=== PATIENT | male | born 1940 | race Caucasian/White ===

== ENCOUNTER 2018-07-30 05:06 | Day surgery (SDC) | payer MEDICARE, OTHER ==
[~2018-07-30 05:06] MED LIST: Dextrose 5%-0.45% NaCl 1,000 ML IV SCH; Sodium Chloride 0.9% 10 ML Syringe FLUSH PRN
[2018-07-30] MEDS ORDERED: fentaNYL 100 MCG/2 ML SDV IV ONE ×3 (05:07→06:26)
[2018-07-30] MEDS ORDERED: Midazolam 1 MG/ML 2 ML SDV IV ONE ×5 (05:07→06:32)
[2018-07-30] MEDS ORDERED: Midazolam 1 MG/ML 2 ML SDV ONE (06:17)
[2018-07-30] MEDS ORDERED: fentaNYL 100 MCG/2 ML SDV ONE (06:17)
--- NOTE | 2018-07-30 07:32 | OR ---
DATE: 07/30/2018 PROCEDURES PERFORMED: Total colonoscopy, NBI, and piecemeal cold snare polypectomy. INSTRUMENT USED: [id number]-[id number] Olympus video colonoscope. PREMEDICATIONS: Fentanyl 100 mcg intravenous and Versed 3 mg intravenous. Nasal O2 cannula. The procedure was done under pulse oximetry, BP recording, and personnel monitor. INDICATION: The patient with rectal bleeding. Colonoscopic examination is done for detection of any polypoid lesions and removal, endoscopic hemostasis therapy if needed. DESCRIPTION OF PROCEDURE: Initial rectal exam was unremarkable. Rigid anoscopy showed small internal hemorrhoids without bleeding from them. The colonoscope was passed with ease. Numerous scattered diverticula were noted in the distal left colon along with deformity. The scope was passed with ease up to the ileocecal area, photographs were taken of the normal-appearing cecum identified by landmarks of appendiceal orifice and double-bulged ileocecal folds. No bleeding was noted from any of the visualized areas at the commencement of the examination. No stricture. No vascular ectasia. No large isolated ulcerations seen. No evidence of diffuse inflammatory bowel disease in the form of friability, contact bleeding, or ulcerations. Probing the proximal sides of folds and flexures, using adequate distention and clearing of the stool material, withdrawal of the scope was made. In the area of hepatic flexure, a 1 cm sized benign-appearing sessile polyp was noted, NBI views were obtained, piecemeal cold snare polypectomy was done, the tissues were retrieved and sent for histopathology. Photographs were taken of the polypectomy site. No bleeding was noted from any of the visualized areas at the completion of examination. The bowel preparation was found to be adequate. IMPRESSION: 1. Internal hemorrhoids. 2. Diverticulosis. 3. Colonic polyp. The patient tolerated the procedure well. [facility] /[id number]
== END 2018-07-30 09:05 | disposition home or self-care (01) ==
LOC: DL.ENDO 05:06
PROVIDERS: ATTEND Internal Medicine Gastroenterology
DX: K62.5 Hemorrhage of anus and rectum (principal); D12.3 Benign neoplasm of transverse colon; K57.30 Diverticulosis of large intestine without perforation or abscess without bleeding; K64.8 Other hemorrhoids; I10 Essential (primary) hypertension; E66.09 Other obesity due to excess calories; E78.5 Hyperlipidemia, unspecified; I25.10 Atherosclerotic heart disease of native coronary artery without angina pectoris; D69.6 Thrombocytopenia, unspecified
CPT/HCPCS: J2250; J3010; J7042

== ENCOUNTER → 2019-12-22 | Day surgery (SDC) | payer MEDICARE, OTHER ==
[~2019-12-22] MED LIST changes: +Midazolam 1 MG/ML 2 ML SDV IV ONE; +Midazolam 1 MG/ML 2 ML SDV ONE; -Sodium Chloride 0.9% 10 ML Syringe FLUSH PRN; +fentaNYL 100 MCG/2 ML SDV IV ONE; +fentaNYL 100 MCG/2 ML SDV ONE
--- NOTE | 2019-12-22 14:42 | OR ---
DATE: 12/22/2019 PROCEDURES: Total colonoscopy and narrow-band imaging. INSTRUMENT USED: [id number] Olympus video colonoscope. PREMEDICATIONS: Fentanyl 100 mcg intravenous, Versed 4 mg intravenous, nasal O2 cannula. The procedure was done under pulse oximetry, BP recording, and section weaver. INDICATION: The patient with previous sessile colonic polyp. Followup colonoscopic examination is done for detection of any residual polyp and removal, endoscopic hemostasis therapy if needed. DESCRIPTION OF PROCEDURE: Initial rectal exam was unremarkable. Colonoscope was passed with ease up to the ileocecal area. Photographs were taken of the normal-appearing cecum, identified by appendiceal orifice and double-bulged ileocecal folds. Numerous scattered diverticula were noted in the distal left colon along with deformity. No bleeding was noted from any of the visualized areas at the commencement of the examination. The bowel preparation was found to be adequate, Comfort scale 2 in all the regions, total score 6. No stricture. No vascular ectasia. No large isolated ulcerations seen. No evidence of diffuse inflammatory bowel disease in the form of friability, contact bleeding, or ulcerations. No malignant tumor mass identified. In the hepatic flexure area, couple of 1 cm sized benign-appearing sessile polyps noted, NBI views were obtained. Probing the proximal sides of folds and flexures using adequate distention and clearing up the stool material, withdrawal of the scope was made, cecum to rectum time over 6 minutes. No bleeding was noted from any of the visualized areas at the completion of examination. IMPRESSION: 1. Diverticulosis. 2. Colonic polyps. The patient tolerated the procedure well. [facility] /[id number]
== END | disposition home or self-care (01) ==
LOC: DL.ENDO 06:48
PROVIDERS: ATTEND Internal Medicine Gastroenterology
DX: Z12.11 Encounter for screening for malignant neoplasm of colon (principal); K57.30 Diverticulosis of large intestine without perforation or abscess without bleeding; K63.5 Polyp of colon; I10 Essential (primary) hypertension; M10.9 Gout, unspecified; M19.90 Unspecified osteoarthritis, unspecified site; I25.10 Atherosclerotic heart disease of native coronary artery without angina pectoris; E66.01 Morbid (severe) obesity due to excess calories; Z86.010 Personal history of colon polyps; Z68.39 Body mass index [BMI] 39.0-39.9, adult
CPT/HCPCS: G0121; J2250; J3010; J7042